=== PATIENT | male | born 1945 | race Caucasian/White ===

== ENCOUNTER 2020-07-13 11:41 | Emergency (ER) | payer OTHER, MEDICARE ==
[~2020-07-13] VITALS: Ht 180.3 cm; Wt 105.0 kg
[2020-07-13] MEDS ORDERED: PROZAC40 MG PO (12:15)
[2020-07-13] MEDS ORDERED: METFORMIN HCL500 M2 PO (12:16)
[2020-07-13] MEDS ORDERED: TRAMADOL HYDROC50 M1 PO (14:13)
[2020-07-13] MEDS ORDERED: CYCLOBENZAPRINE10 MG PO (14:13)
[2020-07-13 14:30] VITALS: BP 159/70
== END 2020-07-13 14:30 | disposition home or self-care (01) | DRG 552 ==
LOC: ED 11:41
DX: M51.86 Other intervertebral disc disorders, lumbar region (principal); E11.9 Type 2 diabetes mellitus without complications; Z79.84 Long term (current) use of oral hypoglycemic drugs